=== PATIENT | female | born 1970 | race Caucasian/White ===

== ENCOUNTER 2017-02-09 09:54 | Inpatient (IN) ==
--- NOTE | 2017-02-08 22:05 | Discharge Summary ---
<Ashley Solis Ayala - Last Filed: 02/08/17 22:00> Date of Encounter: 02/08/17 - Discharge Diagnosis (1) Arthritis of knee, right Priority: Primary Status: Acute (2) Status post total knee replacement, right Priority: Primary Status: Acute (3) HTN (hypertension) Priority: Secondary Status: Acute Qualifiers: Hypertension type: essential hypertension Qualified Code(s): I10 - Essential (primary) hypertension (4) Thyroid disease Priority: Secondary Status: Chronic (5) Obesity Priority: Secondary Status: Chronic Qualifiers: Obesity type: due to excess calories Obesity classification: unspecified obesity classification Serious obesity comorbidity presence: without serious comorbidity Qualified Code(s): E66.09 - Other obesity due to excess calories - Discharge Medications Home Medications: Aspirin Enteric Coated [Aspirin EC] 325 mg PO DAILY #21 tablet. 02/08/17 [Rx] OxyCODONE Immed Rel [Roxicodone 5 MG] 5 - 10 mg PO Q6HR PRN #40 tablet 02/08/17 [Rx] Celecoxib [Celebrex] 200 mg PO DAILY 02/09/17 [History] Cetirizine HCl [All Day Allergy] 10 mg PO DAILY 02/09/17 [History] Levothyroxine [Synthroid] 50 mcg PO 0630 02/09/17 [History] Metoprolol XL (24 HR) Succ [Toprol XL] 50 mg PO HS 02/09/17 [History] Montelukast [Singulair] 10 mg PO HS 02/09/17 [History] Allergies/Adverse Reactions: 3 Allergy/AdvReac Type Severity Reaction Status Date / Time Tetracycline Allergy Hives Verified 02/05/17 10:28 codeine AdvReac Vomiting Verified 02/09/17 11:57 Sulfa (Sulfonamide AdvReac See Verified 02/09/17 11:57 Antibiotics) Comments Primary care physician: Yousif Orozco CNP - Patient Status Disposition: Home, Self-Care Condition: Good - Discharge Instructions Follow Up With: Yousif Orozco CNP [Primary Care Provider] - - Hospital Course Hospital course: Ms. Granados is a 46 year old female - Time Spent with Patient Total time spent providing and/or coordinating discharge services: <Davy Reyes - Last Filed: 02/10/17 06:46> Date of Encounter: 02/10/17 Time of Encounter: 06:45 - Discharge Diagnosis (1) Morbid obesity with BMI of 45.0-49.9, adult Priority: Secondary Status: Chronic (2) Arthritis of knee, right Priority: Primary Status: Chronic (3) Status post total knee replacement, right Priority: Primary Status: Acute (4) HTN (hypertension) Priority: Secondary Status: Chronic Qualifiers: Hypertension type: essential hypertension Qualified Code(s): I10 - Essential (primary) hypertension (5) Thyroid disease Priority: Secondary Status: Chronic Primary care physician: Yousif Orozco CNP - Patient Status Functional capacity at discharge: uses cane/walker Overall status at discharge: patient is progressing back to baseline - Hospital Course Hospital course: Ms. Granados is a 46 year old female Status post left total knee replacement. The patient had an uneventful postoperative course. They received antibiotics and physical therapy and were discharged in stable condition. There will follow -up in the office in 2 weeks. - Time Spent with Patient Total time spent providing and/or coordinating discharge services:
[2017-02-09] MEDS ORDERED: CeFAZolin Pre 3,000 MG/100 ML 3,000 MG/100 ML BAG IVPB ONE (10:09)
[2017-02-09] MEDS ORDERED: Lidocaine -MPF 1% 2 ML VIAL ID ONE (10:09)
[2017-02-09] MEDS ORDERED: Plasma-Lyte A (PH 7.4) 1,000 ML IVC SCH (10:15)
[2017-02-09] MEDS ORDERED: Famotidine 20 MG/2 ML VIAL IVP ONE (10:21)
--- NOTE | 2017-02-09 10:21 | History & Physical Report ---
Date of Encounter: 02/09/17 Time of Encounter: 10:20 24 Hour HP Update - Instructions Instructions: If the History and Physical is less than 30 days old and was completed prior to A.M. admission and or procedure and has NOT been updated on calendar day of procedure please complete this update prior to performing procedure. - Update Patient reports changes in Medical Condition: No Changes in examination, assessment, or condition: No Changes in Medication: No Preop tests/diagnostics Reviewed: Yes Surgery Remains Indicated: Yes Consent for Planned Operative Procedure(s) Verified: Yes - Pre-Operative Checklist Preoperative Checklist Indicated: No Prophylactic Antibiotic Ordered: Yes Is VTE Prophylaxis Indicated?: Yes
[2017-02-09] MEDS ORDERED: Gabapentin 300 MG CAPSULE PO ONE (10:22)
[2017-02-09] MEDS ORDERED: *HR* Promethazine 25 MG/ML VIAL IVP PRN (10:53)
[2017-02-09] MEDS ORDERED: *HR* HYDROmorphone (PF) 1 MG/ML SYRINGE IVP PRN ×2 (10:53→14:52)
[2017-02-09] MEDS ORDERED: *HR* Propofol 200 MG/20 ML VIAL IVP ONE (10:57)
[2017-02-09] MEDS ORDERED: *HR* Midazolam HCl 2 MG/2 ML VIAL ONE (10:57)
[2017-02-09] MEDS ORDERED: Lidocaine -MPF 2% 2 ML VIAL ONE (10:57)
[2017-02-09] MEDS ORDERED: Lidocaine -MPF 4% 5 ML AMPUL ONE (10:57)
[2017-02-09] MEDS ORDERED: *HR* Succinylcholine 200 MG/10 ML VIAL IVP ONE (10:57)
[2017-02-09] MEDS ORDERED: Dexamethasone 4 MG/ML VIAL ONE (10:57)
[2017-02-09] MEDS ORDERED: Ketorolac 30 MG/ML VIAL ONE (10:57)
[2017-02-09] MEDS ORDERED: Ondansetron 4 MG/2 ML VIAL ONE (10:57)
[2017-02-09] MEDS ORDERED: *HR* FentaNYL (PF) 100 MCG/2 ML VIAL ONE (10:57)
--- NOTE | 2017-02-09 11:20 | Anesthesia Evaluation PreOp ---
Date of Encounter: 02/09/17 Time of Encounter: 11:20 - Past History Planned Operation: Rt TKA Cardiac History: HTN, Hyperlipidemia Pulmonary History: Denies Any Significant HX SPRAY BLENDER History: Denies Any Significant HX Other Medical History: Thyroid, Other (Morbid Obesity) Anesthesia History: No Prior Anesthetic Complications : No Alcohol Use: none Drug use: none Medications and Allergies Aspirin Enteric Coated [Aspirin EC] 325 mg PO DAILY #21 tablet. 02/08/17 [Rx] OxyCODONE Immed Rel [Roxicodone 5 MG] 5 - 10 mg PO Q6HR PRN #40 tablet 02/08/17 [Rx] 3 Allergy/AdvReac Type Severity Reaction Status Date / Time codeine Allergy Vomiting Verified 02/05/17 10:28 Sulfa (Sulfonamide Allergy See Verified 02/05/17 10:28 Antibiotics) Comments Tetracycline Allergy Hives Verified 02/05/17 10:28 - Meds/Allergy Pre-op Review Medications Reviewed: Yes Allergies Reviewed: Yes Beta Blockers on Current Med List: Yes (Took Toprol last night 2100) Anesthesia Results - Labs Laboratory Tests 02/05/17 02/05/17 10:41 10:41 Hgb 14.1 Hct 43.9 Plt Count 266 Sodium 139 Potassium 4.3 BUN 14 Creatinine 0.81 - Imaging EKG: report reviewed (SR) Anesthesia Exam O2 Sat Height 1.73 m Height 1.73 m Weight 137.438 kg Weight 137.438 kg O2 Sat by Pulse Oximetry 97 Vital Signs Temp Pulse Resp BP Pulse Ox 97.8 F 73 18 122/73 97 02/09/17 10:25 02/09/17 10:25 02/09/17 10:25 02/09/17 10:25 02/09/17 10:25 Height: 5'8 Weight: 303 lbs NPO (# of Hours): MN Pain Scale: 0 - HEENT Pupil (Motor): Pupils equal, EOMI Mallampati: II Teeth: Normal Oral Opening: Greater than 3 - SPRAY BLENDER LOC: Oriented SPRAY BLENDER Motor: Normal RUE, Normal LUE, Normal RLE, Normal LLE, Normal Face SPRAY BLENDER Sensory: Normal: RUE, LUE, RLE, LLE, Face - Cardiac Rhythm: Regular Murmur: None JVD: No Carotid Bruit: No - Pulmonary Breath Sounds: bilateral Clear Respiratory Effort: Symmetrical Anesthesia Assess/Plan ASA Score: 3 (MO HTN) Modified Shant Scale for Level of Consciousness: Cooperative, oriented, and tranquil Anesthetic Plan: General, Regional Monitoring Plan: Standard Monitors Recovery Plan: PACU (Discussed GA and RA, agrees to proceed)
[2017-02-09] MEDS ORDERED: Tetracaine/PF 20 MG/2 ML AMPUL ONE (11:31)
[2017-02-09] MEDS ORDERED: Bupivacaine/Clonidine Syringe 1 EACH SYRINGE ONE (11:32)
--- NOTE | 2017-02-09 11:58 | Anesthesia Procedures ---
Date of Encounter: 02/09/17 Time of Encounter: 11:20 Procedures: Anesthesia - Nerve Block Procedure Date: 02/09/17 Time: 11:45 Pre-op Diagnosis: Rt Knee Arthropathy Surgical Procedure: Rt TKA Checklist: Correct Patient Identifier Correct side: Right Blood Thinner: No Monitor Applied: EKG, BP, Pulse Oximetry Supplemental Oxygen via Nasal Cannula (L/min): 2 Sedation: Versed (mg): 2 Sedation: Fentanyl (mcg): 100 Indication: Post Op Analgesia Pre-op Neuro Deficits: No Block Type: Femoral, Other (IPACK) Catheter placed: No Depth at skin (cm): 2 Sterile Technique: Yes Ultrasound used: Yes Anatomy identified: Yes Visual spread of Local: Yes Neuro Stimulation: Yes Nerve Stimulator Range: >0.4 - 0.6 mA Blood on Needle Aspiration: No Smooth Injection of Local: Yes Pain with Injection of Local: No Prep: Chlorhexadine Needle: 22 x 50 mm Stimuplex, 21 x 100 mm Stimuplex Local: 0.25% Bupivicaine w/Clonidine 20 mcg/cc, Tetracaine (20 mg), Other ( Marcaine 0.5%) Volume (cc): 40 Number of Attempts: 1 Complications: None/effective block Vitals: Vital Signs/O2 Sat/Glucose, Most Current Temp Pulse Resp BP Pulse Ox 02/09/17 11:53 63 16 132/82 97 02/09/17 11:31 63 16 133/80 98 02/09/17 10:25 97.8 F 73 18 122/73 97
[2017-02-09] MEDS ORDERED: *HR* HYDROmorphone 2 MG/ML SYRINGE ONE (12:34)
--- NOTE | 2017-02-09 12:57 | Orthopedic Operative Note ---
Date of procedure: 02/09/17 Pre-op diagnosis: Right knee arthritis Post-op diagnosis: same Procedure: Procedure: Right Total knee replacement Estimated blood loss: 200 cc Hardware: Metal and polyethylene replacement: Biomet Femur: 70, 14 x 120 Tibia: 75, 14 x 80 Lizette insert: 10 Patella: 37 Exam Under anesthesia: Full flexion and extension no instability. Procedural Notes: Patient noted to have grade 4 arthritic changes medial compartment and patellofemoral joint. Operative procedure: The patient was brought to the operating room and placed on the operating room table. After general anesthesia was administered the operative knee was examined. Findings were noted in the exam under anesthesia. The operative extremity was prepped and draped in sterile surgical fashion. The patient received IV antibiotics prior to skin incision. A standard midline incision was made centered over the patella. The incision was made through the skin and subcutaneous tissue. A medial parapatellar tendon approach was performed. Care was taken to preserve tissue along the medial aspect of the patella. And to protect the patella tendon. The deep MCL was released off the medial tibia. The infra patella fat pad was excised. Knee was brought into flexion. Patient noted to have grade 4 arthritic changes medial compartment and patellofemoral joint. The entry hole was made for the intramedullary femoral guide. The guide was seated in 6 degrees of valgus. Anterior cut was made followed by the distal cut. The PCL the medial and the lateral menisci were excised. The tibia was subluxed forward. The entry hole was made for the intramedullary tibial guide. Guide was seated to resect 2 mm off the more abnormal side. The knee was brought into flexion the distal femur was sized to a 70 The femur was first reamed to a 14 x 1 20 The femoral guide was seated, the anterior cut was made followed by the posterior condylar cut, followed by the chamfer cuts. The finishing guide was seated the box cut was made. Trial had good fit and fixation The tibia was sized to a an 75 The tibia was first reamed 14 x 80 Trial reduction revealed full extension no varus valgus instability with the appropriate 10 insert. The patella was everted and cut was made at the level of the insertion of the quadriceps and patella tendon. The patella was sized to a 37 the guide was seated and the lug holes are drilled. Trial reduction revealed excellent patella tracking. All trial components were removed all bony surfaces were irrigated. Components were assembled on the back table. The femur was cemented first followed by the tibia. The 10 Lizette was seated and secured. The knee was brought into full extension. The patella was cemented and held in place with the patellar holding clamp. After the cement had hardened, the knee sat for 2 minutes with a Betadine saline solution. The knee was then irrigated out with 2 L of pulse irrigation. The knee was closed by the PA. The extensor mechanism was closed with #2 FiberWire suture and #2 PDS suture. The subcutaneous tissue was then irrigated and closed deep with #1 PDS suture superficially with 0 PDS suture and skin was closed with skin hannah The patient was then placed in a sterile dressing and a postoperative brace extubated and transferred to recovery room in stable condition. Anesthesia: ALENA Surgeon: Davy Reyes Data Control Assistant: Missy Barrett Condition: stable Disposition: PACU
[2017-02-09 14:11] LABS: Hematocrit 40.3 % (35.3-44.9); Hemoglobin 13.4 g/dL (11.5-15.4)
--- NOTE | 2017-02-09 14:35 | Anesthesia Evaluation Post Op ---
Date of Encounter: 02/09/17 Time of Encounter: 14:25 - Vital Signs Vital Signs: Vital Signs/O2 Sat/Glucose, Most Current Temp Pulse Resp BP Pulse Ox 02/09/17 14:17 97.6 F 57 16 112/60 97 02/09/17 14:07 97.6 F 57 16 112/54 96 02/09/17 13:57 97.6 F 61 16 114/67 96 02/09/17 13:47 65 16 114/67 95 02/09/17 13:37 97.6 F 67 16 126/87 98 02/09/17 11:53 63 16 132/82 97 02/09/17 11:31 63 16 133/80 98 - Lungs Lungs: Clear Ascult./Percussion - Airway Airway: Non-obstructed - Cardiovascular Regular Rate - Mental Status Mental Status: Alert & Oriented, Answers Appropriately - Pain Pain Scale: 1 - Nausea Vomiting Nausea Vomiting: Not Present - Hydration Hydration: Ice chips - Discharge PostOp Status: Transfer Patient to floor
[2017-02-09] MEDS ORDERED: Naloxone 0.4 MG/ML INJ IVP PRN (14:52)
[2017-02-09] MEDS ORDERED: Ondansetron 4 MG/2 ML VIAL IVP PRN (14:52)
[2017-02-09] MEDS ORDERED: Ringers Solution, Lactated 1,000 ML IVC SCH (14:52)
[2017-02-09] MEDS ORDERED: Temazepam 15 MG CAPSULE PO PRN (14:52)
[2017-02-09] MEDS ORDERED: MOM Conc 10 ML UD.LIQ PO PRN (14:52)
[2017-02-09] MEDS ORDERED: Sennosides 8.6 MG TABLET PO PRN (14:52)
[2017-02-09] MEDS ORDERED: *HR* OxyCODONE Immed Rel 5 MG TABLET PO PRN (14:52)
[2017-02-09] MEDS: *HR* Enoxaparin 30 MG/0.3 ML SYRINGE SQ SCH (16:34)
[2017-02-09] MEDS: ceFAZolin 3,000 MG in D5% in Water 100 ML IVPB SCH ×2 (16:34→23:32)
[2017-02-09] MEDS ORDERED: *HR* Enoxaparin 30 MG/0.3 ML SYRINGE SQ SCH (18:00)
[2017-02-09] MEDS: *HR* OxyCODONE Immed Rel 5 MG TABLET PO PRN (20:59)
[2017-02-09] MEDS: Metoprolol XL (24 HR) Succ 50 MG TAB.ER.24H PO SCH ×2 (21:00)
[2017-02-10] MEDS: *HR* OxyCODONE Immed Rel 5 MG TABLET PO PRN ×2 (03:17→09:50)
[2017-02-10] MEDS: *HR* Enoxaparin 30 MG/0.3 ML SYRINGE SQ SCH (05:13)
[2017-02-10 05:19] LABS: BUN/Creatinine Ratio 21 (6-26); Blood Urea Nitrogen 16 mg/dL (7-20); Calcium 8.9 mg/dL (8.6-10.8); Carbon Dioxide 24 mEq/L (19-29); Chloride 107 mEq/L (98-109); Glucose 109 mg/dL (70-99); Osmolality,Calculated 288 (280-300); Potassium 4.4 mEq/L (3.5-4.5); Sodium 138 mEq/L (136-145); eGFR For African Americans > 60 (> 60); eGFR For Non-African Americans > 60 (> 60)
--- NOTE | 2017-02-10 06:46 | Orthopedics Progress Note ---
Date of Encounter: 02/10/17 Time of Encounter: 06:46 - Assessment and Plan (1) Morbid obesity with BMI of 45.0-49.9, adult Current Visit: Yes Status: Chronic (2) Arthritis of knee, right Current Visit: Yes Status: Chronic (3) Status post total knee replacement, right Current Visit: Yes Status: Acute (4) HTN (hypertension) Current Visit: Yes Status: Chronic Qualifiers: Hypertension type: essential hypertension Qualified Code(s): I10 - Essential (primary) hypertension (5) Thyroid disease Current Visit: Yes Status: Chronic Subjective Interval history: Patient was seen this morning doing well without complaints. Afebrile vital signs stable. Operative extremity: Neurovascularly intact Dressing clean dry and intact Calves nontender Assessment and plan: Continue with postoperative care Hematocrit 37 discharged today Objective Vital signs: Vital Signs Temp Pulse Resp BP Pulse Ox 02/10/17 06:40 97.8 F 54 16 92/59 95 02/10/17 04:59 98.3 F 58 17 108/73 96 02/09/17 22:52 98.1 F 64 16 100/64 96 02/09/17 21:23 97.4 F L 60 17 111/66 98 02/09/17 17:00 97.9 F 62 16 115/68 97 02/09/17 16:00 97.9 F 60 14 114/69 94 02/09/17 15:00 97.5 F L 58 16 117/62 98 02/09/17 14:30 97.6 F 55 15 128/67 97 02/09/17 14:17 97.6 F 57 16 112/60 97 02/09/17 14:07 97.6 F 57 16 112/54 96 02/09/17 13:57 97.6 F 61 16 114/67 96 02/09/17 13:47 65 16 114/67 95 02/09/17 13:37 97.6 F 67 16 126/87 98 02/09/17 11:53 63 16 132/82 97 02/09/17 11:31 63 16 133/80 98 02/09/17 10:25 97.8 F 73 18 122/73 97 Intake and Output 02/09/17 02/09/17 02/10/17 15:59 23:59 07:59 Intake Total 100 / 100 100 / 100 Output Total 200 / 200 0 / 0 600 / 600 Balance -100 / -100 100 / 100 -600 / -600 Intake: IV Fluids 100 / 100 100 / 100 Ancef Premix 3,000 MG/100 100 / 100 ML 3,000 mg In 100 ml @ 200 mls/hr IVPB PREOP ONE Rx#:[id number] Ancef 3,000 MG In 100 / 100 Dextrose 5% 100 ML @ 200 mls/hr IVPB Q8HR MAME Rx#: [id number] Output: Urine 0 / 0 600 / 600 Estimated Blood Loss 200 / 200 Other: # Voids 2 Weight 137.438 kg 136.8 kg Patient Weight 02/10/17 23:59 Weight 136.8 kg - Labs CBC & BMP: 02/10/17 04:41 02/10/17 04:41 Labs: Abnormal lab results Glucose 109 mg/dL (70-99) H 02/10/17 04:41 - VTE Documentation of Mechanical Device: Venous foot pump, device Consult Discharge Plan - Plan Referrals: Yousif Orozco PHOTOCOMPOSING MACHINE OPERATOR [Primary Care Provider] -
[2017-02-10] MEDS ORDERED: Loratadine 10 MG TABLET PO SCH (09:00)
[2017-02-10] MEDS ORDERED: Celecoxib 200 MG CAPSULE PO SCH (09:00)
[2017-02-10 10:50] VITALS: BP 101/67
--- NOTE | 2017-02-10 12:20 | Event Note ---
Date of Encounter: 02/10/17 Time of Encounter: 12:20 PCR - Right TKR - Biomet* POD#1 Patient seen at bedside. Labs stable Pain control: adequate Participating in PT. All questions and concerns addressed. Educated on use of incentive spirometer, ambulation, and hydration. Patient educated on post-operative restrictions and care. Addressed: see above D/C plan:. Home with HH today
--- NOTE | 2017-02-10 14:29 | Physician Discharge Referral ---
Home Health/Hosp Referral Info Transfer to: Home Health Attending Provider: Dr. Davy Reyes - Diagnosis (1) Status post total knee replacement, right Priority: Primary Status: Acute (2) Arthritis of knee, right Priority: Primary Status: Chronic (3) HTN (hypertension) Priority: Secondary Status: Chronic (4) Thyroid disease Priority: Secondary Status: Chronic (5) Obesity Priority: Secondary Status: Chronic - Respiratory Orders Smoking Cessation: Smoking cessation has been advised. For more information, call the [place] Tobacco Quit Line at 4-352-CGQY-NOW. - Dressing/Wound Care Site: right knee Type of Dressing/Treatments w/Frequency: Opsite dressing, leave intact until first post-operative visit. If dressing becomes >50% saturated, contact office, remove dressing and place appropriate dressing in its place. Do not allow for dressing to get wet. [place] in place, plan to remove at post-operative day #14-16. - Diet/Nutrition Diet/Nutrition Orders: Regular - Activity Activity Orders: Up ad lisy, Ambulate, Chair, Walker Activity: List: Total Knee replacement Precautions x 6 weeks Apply cold therapy wrap 3-6x/day for 20 minutes at a time. Encourage ambulation throughout the day and incentive spirometer 10x/hour. Elevate affected extremity above heart as tolerated. Brace: Wear knee immobilizer at night x 2 weeks. - Services Needed Following services are medically necessary services: Nursing, Home Health Aide, Physical Therapy, Occupational Therapy - Transfer Medications Home Medications: Aspirin Enteric Coated [Aspirin EC] 325 mg PO DAILY #21 tablet. 02/08/17 [Rx] OxyCODONE Immed Rel [Roxicodone 5 MG] 5 - 10 mg PO Q6HR PRN #40 tablet 02/08/17 [Rx] Celecoxib [Celebrex] 200 mg PO DAILY 02/09/17 [History] Cetirizine HCl [All Day Allergy] 10 mg PO DAILY 02/09/17 [History] Levothyroxine [Synthroid] 50 mcg PO 0630 02/09/17 [History] Metoprolol XL (24 HR) Succ [Toprol XL] 50 mg PO HS 02/09/17 [History] Montelukast [Singulair] 10 mg PO HS 02/09/17 [History] Allergies/Adverse Reactions: 3 Allergy/AdvReac Type Severity Reaction Status Date / Time Tetracycline Allergy Hives Verified 02/05/17 10:28 codeine AdvReac Vomiting Verified 02/09/17 11:57 Sulfa (Sulfonamide AdvReac See Verified 02/09/17 11:57 Antibiotics) Comments Certification: Further, I certify that my clinical findings support that this patient is homebound (i.e. absences from home require considerable and taxing effort and are for medical reasons or worship services or infrequently or short duration when for other reasons) because: Homebound Reason: Post-surgery restriction and or conditions limit ability to leave home Attestation: My signature below is to certify that this patient is under my care and that I, or nurse practitioner, or a physician stylist assistant working with me, has a face-to- face encounter with this patient.
== END 2017-02-10 16:00 | disposition home or self-care (01) | DRG 470 ==
LOC: SAMDAY 09:54 → 3NENU 14:39
PROVIDERS: ADMIT Orthopaedic Surgery; ATTEND Orthopaedic Surgery